=== PATIENT | female | born 1975 | race Caucasian/White ===

== ENCOUNTER → 2017-09-30 09:16 | Outpatient (CLI) | payer OTHER, SELFPAY ==
--- NOTE | 2017-09-30 09:18 | RAD_ITS ---
STUDY: X-RAY - LUMBOSACRAL SPINE REASON FOR EXAM: Female, 42 years old. Low back pain TECHNIQUE: Seven view(s) of the lumbosacral spine were obtained. COMPARISON: None FINDINGS: Normal lumbar lordosis. There is no substantial scoliosis. There is normal alignment of the vertebrae. Vertebral body heights are maintained. There is moderate disc space narrowing at L5-S1. Normal bilateral sacral ala, sacroiliac joints, and visualized sacrum. Normal visualized soft tissue structures. RAD/L/S Spine Comp/w Bending Views IMPRESSION: There are moderate degenerative disc changes at L5-S1. Alignment is intact in neutral positioning as well as flexion and extension. Electronically Signed: Rajani Khan MD at 11:36 EDT Tel Direct: [phone], Service support ,
--- NOTE | 2017-09-30 10:30 | RAD_ITS ---
STUDY: X-RAY - CERVICAL SPINE REASON FOR EXAM: Female, 42 years old. Neck pain TECHNIQUE: 6 view(s) of the cervical spine were obtained. COMPARISON: None FINDINGS: Normal anterior atlantoaxial articulation. Normal odontoid process. Normal cervical lordosis. Normal vertebral bodies and endplates. Normal disc space heights. Mild right neural foraminal narrowing C3-4, C4-5 and C5-6. The soft tissue structures are unremarkable. RAD/Cerv Spine 4 or 5 Views IMPRESSION: No fracture. Normal cervical lordosis. Mild right neural foraminal narrowing. Electronically Signed: Abel Alvarenga DO at 21:45 EDT , Service support ,
== END ==
PROVIDERS: Visit Provider Orthopaedic Surgery
DX: M54.2 Cervicalgia (principal); M54.5 Low back pain
CPT/HCPCS: 72050; 72114